=== PATIENT | female | born 1945 | race Caucasian/White ===

== ENCOUNTER → 2017-02-12 | Outpatient (CLI) | payer OTHER ==
[~2017-02-12] MED LIST: BP MEDICATION
--- NOTE | 2017-02-12 15:35 | MAMMOGRAPHY REPORT ---
BILATERAL DIGITAL SCREENING MAMMOGRAM WITH CAD: 02/12/2017 CLINICAL HISTORY: Routine screening. Patient has no complaints. TECHNIQUE: Current study was also evaluated with a Computer Aided Detection (CAD) system. Bilatera l CC and MLO views were obtained. COMPARISON: Comparison is made to exams dated: 02/12/2016 mammogram, 02/11/2015 mammogram, 02/09/2014 william mogram, 02/08/2013 mammogram, 02/08/2012 mammogram - [facility], and 09/08/2010 mammogr am - [facility]. BREAST COMPOSITION: The tissue of both breasts is heterogeneously dense, which may obscure small ma sses. FINDINGS: No suspicious masses, calcifications, or areas of architectural distortion are noted in e ither breast. There has been no significant interval change compared to prior exams. Bilateral johan gn-appearing calcifications are not significantly changed. Bilateral asymmetries are stable compare d to prior exams. IMPRESSION: ACR BI-RADS CATEGORY 2: BENIGN There is no mammographic evidence of malignancy. A 1 year screening mammogram is recommended. The p atient will receive written notification of the results. Approximately 10% of breast cancers are not detected with mammography. A negative mammographic repor t should not delay biopsy if a clinically suggestive mass is present. Leaenna Castellon M.D. ah/:02/12/2017 13:31:42 Method Consultant: Cookie MOSS(R)(M), [facility] letter sent: Normal 1/2 BI-RADS Code: ACR BI-RADS Category 2: Benign
== END | disposition home or self-care (01) ==
LOC: C.MAMM 08:54
PROVIDERS: ATTEND Family Medicine
DX: Z12.31 Encounter for screening mammogram for malignant neoplasm of breast (principal)

== ENCOUNTER → 2017-03-01 | Outpatient (CLI) | payer OTHER ==
[2017-03-01 10:52] LABS: BASO % 0.7 %; BASO ABS # 0.04 K/uL (0-0.2); COMPLETE YES; EOS % 1.5 %; HEMATOCRIT 47.8 % (37-47); IG% 0.2 %; LYMPH % 36.3 %; LYMPH ABS # 2.14 K/uL (1.2-3.4); MEAN CELL VOLUME 93.2 fL (80-100); MEAN CORPUSCULAR HEMOGLOBIN 29.6 pg (25-34); MEAN CORPUSCULAR HGB CONC 31.8 g/dl (32-36); MEAN PLATELET VOLUME 10.7 fL (7.4-10.4); MONO % 7.5 %; NEUT % 53.8 %; PLATELET COUNT 318 K/uL (130-400); RED BLOOD COUNT 5.13 M/uL (4.2-5.4); WHITE BLOOD COUNT 5.89 K/uL (4.8-10.8)
[2017-03-01 10:56] LABS: ESTIMATED AVERAGE GLUCOSE 126 mg/dl; HA1C FLAG Normal (Normal)
[2017-03-01 11:21] LABS: ALKALINE PHOSPHATASE 76 U/L (45-117); ALT/SGPT 46 U/L (12-78); AST/SGOT 28 U/L (15-37); BLOOD UREA NITROGEN 20 mg/dl (7-18); BUN/CREATININE RATIO 30.2 (10-20); CALCIUM 9.7 mg/dl (8.5-10.1); CARBON DIOXIDE 30 mmol/L (21-32); CHLORIDE 105 mmol/L (98-107); CHOLESTEROL 203 mg/dl (0-200); CHOLESTEROL/HDL RATIO 3.6; CREATININE 0.65 mg/dl (0.60-1.20); GLUCOSE 110 mg/dl (70-99); HDL CHOLESTEROL 56 mg/dl; LDL CHOLESTEROL CALCULATED 129 mg/dl; POTASSIUM 3.9 mmol/L (3.5-5.1); SODIUM 141 mmol/L (136-145); TRIGLYCERIDES 91 mg/dl (0-150); VERY LOW DENSITY LIPOPROT CALC 18 mg/dl
== END | disposition home or self-care (01) ==
LOC: C.LABBC 08:33
PROVIDERS: ATTEND Physician Assistant Medical
DX: Z00.00 Encounter for general adult medical examination without abnormal findings (principal); I10 Essential (primary) hypertension; R73.01 Impaired fasting glucose; E78.5 Hyperlipidemia, unspecified

== ENCOUNTER → 2017-03-22 | Outpatient (CLI) | payer OTHER ==
--- NOTE | 2017-03-22 09:41 | DIAGNOSTIC IMAGING REPORT ---
THYROID ULTRASONOGRAPHY CLINICAL HISTORY: GOITER DIFFUSE, NONTOXIC COMPARISON STUDY: June 2014 FINDINGS: The right lobe of the thyroid measures 61 x 21 x 24 mm. The left lobe of thyroid measures 18 x 18 x 24 mm. There are multiple coalescent thyroid nodules. The largest nodule on the right is a mid pole circumscribed isoechoic 24 mm nodule. The largest nodule on the left is a circumscribed mid pole heterogeneous slightly hypoechoic 32 mm nodule. There is a large circumscribed isoechoic isthmus nodule measuring 45 mm. IMPRESSION: Multinodular thyroid goiter, similar to the preceding examination. Electronically signed by: Jose Guardado M.D. 03/22/2017 9:39 AM Dictated Date/Time: 03/22/2017 9:37 AM
== END | disposition home or self-care (01) ==
LOC: C.ULTRBC 09:07
PROVIDERS: ATTEND Physician Assistant Medical
DX: E04.0 Nontoxic diffuse goiter (principal)

== ENCOUNTER → 2018-02-16 | Outpatient (CLI) | payer OTHER ==
--- NOTE | 2018-02-17 07:57 | MAMMOGRAPHY REPORT ---
BILATERAL DIGITAL SCREENING MAMMOGRAM TOMOSYNTHESIS WITH CAD: 02/16/2018 CLINICAL HISTORY: Routine screening. Patient has no complaints. TECHNIQUE: Breast tomosynthesis in addition to standard 2D mammography was performed. Current study was also evaluated with a Computer Aided Detection (CAD) system. COMPARISON: Comparison is made to exams dated: 02/12/2017 mammogram, 02/12/2016 mammogram, 02/11/2015 mamm ogram, 02/09/2014 mammogram, 02/08/2013 mammogram - [facility], and 09/08/2010 mammogram - [facility]. BREAST COMPOSITION: The tissue of both breasts is heterogeneously dense, which may obscure small mas ses. FINDINGS: No suspicious masses, calcifications, or areas of architectural distortion are noted in ei ther breast. There has been no significant interval change compared to prior exams. Bilateral benign -appearing calcifications are not significantly changed. IMPRESSION: ACR BI-RADS CATEGORY 2: BENIGN There is no mammographic evidence of malignancy. A 1 year screening mammogram is recommended. The pa tient will receive written notification of the results. Approximately 10% of breast cancers are not detected with mammography. A negative mammographic report should not delay biopsy if a clinically suggestive mass is present. Leeanna Castellon M.D. ah/:02/16/2018 12:35:27 Latin Professor: Sean Jauregui M, [facility] letter sent: Normal 1/2 BI-RADS Code: ACR BI-RADS Category 2: Benign
== END | disposition home or self-care (01) ==
LOC: C.MAMM 09:06
PROVIDERS: ATTEND Physician Assistant Medical
DX: Z12.31 Encounter for screening mammogram for malignant neoplasm of breast (principal)

== ENCOUNTER → 2018-03-07 | Outpatient (CLI) | payer OTHER ==
[2018-03-07 14:57] LABS: ALT/SGPT 32 U/L (12-78); AST/SGOT 24 U/L (15-37); BLOOD UREA NITROGEN 14 mg/dl (7-18); CARBON DIOXIDE 25 mmol/L (21-32); CREATININE 0.71 mg/dl (0.60-1.20); GLUCOSE 107 mg/dl (70-99); POTASSIUM 3.9 mmol/L (3.5-5.1); SODIUM 139 mmol/L (136-145)
[2018-03-07 15:07] LABS: ALKALINE PHOSPHATASE 71 U/L (45-117)
[2018-03-07 15:20] LABS: CHOLESTEROL 191 mg/dl (0-200); LDL CHOLESTEROL CALCULATED 106 mg/dl; TOTAL PROTEIN 7.9 gm/dl (6.4-8.2)
== END | disposition home or self-care (01) ==
LOC: C.LABBC 09:15
PROVIDERS: ATTEND Physician Assistant Medical
DX: I10 Essential (primary) hypertension (principal); R73.01 Impaired fasting glucose; E78.5 Hyperlipidemia, unspecified; E04.1 Nontoxic single thyroid nodule; M85.89 Other specified disorders of bone density and structure, multiple sites

== ENCOUNTER → 2018-03-11 | Outpatient (CLI) | payer OTHER ==
--- NOTE | 2018-03-11 10:00 | DIAGNOSTIC IMAGING REPORT ---
R HAND MIN 3 VIEWS ROUTINE CLINICAL HISTORY: HAND ARTHRITIS COMPARISON: None FINDINGS: Alignment of the right hand is anatomic. No fracture or suspicious lesion is present. No erosions are identified. There is marked joint space narrowing with osteophytosis of the distal interphalangeal joint of the right fifth finger. There is mild to moderate osteoarthritis within multiple additional articulations of the right hand. IMPRESSION: 1. No acute fracture. 2. Severe osteoarthritis within the distal interphalangeal joint of the right fifth finger. Moderate osteoarthritis within multiple additional articulations. Electronically signed by: Keith Hammond M.D. 03/11/2018 9:59 AM Dictated Date/Time: 03/11/2018 9:57 AM
--- NOTE | 2018-03-11 10:10 | DIAGNOSTIC IMAGING REPORT ---
L HAND MIN 3 VIEWS ROUTINE CLINICAL HISTORY: HAND ARTHRITIS COMPARISON: None FINDINGS: Alignment of the left hand is anatomic. No fracture or suspicious lesion. No erosions are identified. There is moderate arthritis of the left first carpometacarpal joint. There is mild to moderate osteoarthritis within several additional articulations with the left hand. IMPRESSION: 1. No acute fracture. 2. Moderate osteoarthritis of the left first carpometacarpal joint. 3. Mild osteoarthritis within multiple additional articulations of the left hand. Electronically signed by: Keith Hammond M.D. 03/11/2018 10:09 AM Dictated Date/Time: 03/11/2018 10:07 AM
== END | disposition home or self-care (01) ==
LOC: C.LABBC 09:32
PROVIDERS: ATTEND Physician Assistant Medical
DX: L40.9 Psoriasis, unspecified (principal); M19.041 Primary osteoarthritis, right hand; M18.12 Unilateral primary osteoarthritis of first carpometacarpal joint, left hand

== ENCOUNTER 2020-01-17 06:21 | Inpatient (IN) ==
--- NOTE | 2019-12-27 12:18 | PAT Medication Instructions ---
Medication Instructions Date of Service December 27, 2019 Home Medications Medication Instructions Recorded simvastatin 40 mg tablet 40 mg PO QPM #90 tab 10/30/19 azithromycin 250 mg tablet See Rx Instructions PO .COMPLEX #6 12/25/19 tab mometasone 50 mcg/actuation nasal 2 sprays INTNAS UD PRN #17 gm 12/25/19 spray acetaminophen 325 mg capsule 325 mg PO Q6H PRN ascorbate calcium (vitamin C) 500 mg tablet 500 mg PO DAILY calcipotriene 0.005 % topical cream 1 appln TOP BID PRN clobetasol 0.05 % topical cream 1 appln TOP UD PRN multivitamin 1 cap PO DAILY secukinumab 150 mg/mL subcutaneous syringe 150 mg SQ MONTHLY simvastatin 40 mg tablet 40 mg PO QPM calcium carbonate-vitamin D3 [Calcium 600 + D(3)] 1 cap PO DAILY cetirizine [Zyrtec] 10 mg PO DAILY lisinopril 10 mg PO QAM triamterene-hydrochlorothiazid 1 cap PO QAM azithromycin 250 mg tablet See Rx Instructions PO .COMPLEX mometasone 50 mcg/actuation nasal spray 2 sprays INTNAS UD PRN Continue as directed secukinumab 150 mg/mL subcutaneous syringe 150 mg SQ MONTHLY azithromycin 250 mg tablet See Rx Instructions PO .COMPLEX STOP taking 24 hours before surgery calcipotriene 0.005 % topical cream 1 appln TOP BID PRN clobetasol 0.05 % topical cream 1 appln TOP UD PRN DO NOT take the morning of surgery ascorbate calcium (vitamin C) 500 mg tablet 500 mg PO DAILY multivitamin 1 cap PO DAILY calcium carbonate-vitamin D3 [Calcium 600 + D(3)] 1 cap PO DAILY cetirizine [Zyrtec] 10 mg PO DAILY lisinopril 10 mg PO QAM triamterene-hydrochlorothiazid 1 cap PO QAM Take morning of surgery With a small sip of water, OTHERWISE NOTHING TO EAT OR DRINK AFTER MIDNIGHT: acetaminophen 325 mg capsule 325 mg PO Q6H PRN (okay to take up to 4 hours prior to surgery if needed) mometasone 50 mcg/actuation nasal spray 2 sprays INTNAS UD PRN (if needed) Take evening before surgery acetaminophen 325 mg capsule 325 mg PO Q6H PRN (if needed) simvastatin 40 mg tablet 40 mg PO QPM mometasone 50 mcg/actuation nasal spray 2 sprays INTNAS UD PRN (if needed) Other Notes If you have any questions please call us at [phone] or [phone] or [phone] or [phone]
--- NOTE | 2019-12-28 14:11 | Anesthesiology Consultation ---
Date of Service December 28, 2019 Assessment & Plan (1) Encounter for pre-operative examination: Chart Review Chart Review: Acceptable Risk for Surgery (pending final PCP clearance after review of recent pre op testing ) and Patient seen in Pre Admission Testing Surgeon ordered PCP clearance 12/25/19 (will send preop labs to PCP for review) Seen by PCP 12/24/19= Pending normal preop testing, she is at low risk for cardiac complications for upcoming knee replacement surgery. Pre op testing scheduled later this week. Checked CXR - given azithromycin due to upcoming surgery for cough. Also recommended OTC Prilosec for possible reflux for cough Teaching & Discussion Pre-Anesthesia Teaching/Discussion Notes: Instructed NPO after midnight before surgery,except medications with 15 cc of water. Medication instructions provided according to the PAT guidelines. History Surgery Operation Date: 01/17/20 09:00 Proposed Procedures p Right Total Knee Arthroplasty - Dani Linton MD Height/Weight Height: 5 ft 2 in Weight: 92.1 kg Allergies Allergy/AdvReac Type Severity Reaction Status Date / Time celecoxib [From Celebrex] Allergy Unknown Psoriasis Verified 12/25/19 08:52 meloxicam Allergy Unknown Psoriasis Verified 12/25/19 08:52 Medications Home Medications Medication Instructions Recorded Confirmed Last Taken acetaminophen 325 mg capsule 325 mg PO Q6H PRN 05/31/19 12/25/19 Unknown ascorbate calcium (vitamin C) 500 500 mg PO DAILY 05/31/19 12/25/19 Unknown mg tablet calcipotriene 0.005 % topical cream 1 appln TOP BID PRN 05/31/19 12/25/19 Unknown clobetasol 0.05 % topical cream 1 appln TOP UD PRN 05/31/19 12/25/19 Unknown multivitamin 1 cap PO DAILY 05/31/19 12/25/19 Unknown secukinumab 150 mg/mL subcutaneous 150 mg SQ MONTHLY ml 05/31/19 12/25/19 12/15/19 syringe simvastatin 40 mg tablet 40 mg PO QPM #90 tab 10/30/19 12/25/19 Unknown calcium carbonate-vitamin D3 1 cap PO DAILY 12/21/19 12/25/19 Unknown [Calcium 600 + D(3)] cetirizine [Zyrtec] 10 mg PO DAILY 12/21/19 12/25/19 Unknown lisinopril 10 mg PO QAM 12/21/19 12/25/19 Unknown triamterene-hydrochlorothiazid 1 cap PO QAM 12/21/19 12/25/19 Unknown azithromycin 250 mg tablet See Rx Instructions PO .COMPLEX #6 12/25/19 12/25/19 Unknown tab mometasone 50 mcg/actuation nasal 2 sprays INTNAS UD PRN #17 gm 12/25/19 12/25/19 Unknown spray Past Medical History Medical History Hyperlipidemia Hypertension Impaired fasting glucose Hgb A1C usually around 6.0 Psoriasis Follows with rheum Thyroid nodule Under observation- follows with PCP - stable x years Exercise / Class Metabolic Activity II 4-5 Yardwork/Stairs/Walk up hill (one flight of stairs- no chest pain or SOB ) Past Family History Family History Mother Pulmonary embolism History of hip surgery Hypertension Hyperlipidemia Father Pneumothorax Hypertension Hyperlipidemia Grandmother Breast cancer Past Surgical History Surgical History Family history of reaction to anesthesia SISTER - N/V History of colonoscopy History of gynecologic surgery MULTIPLE FOR ENDOMETRIOSIS History of hemangioma FOR REMOVAL X3 (NO LOWER EAR LOBE R SIDE) History of left knee surgery History of left oophorectomy History of repair of left rotator cuff Past Anesthesia History No Hx of Anesthesia Complications and No Family Hx of Anesthesia Complications (besides sister having PONV ) History of PONV No Hx of PONV and No Hx of Motion Sickness Social History Smoking Status: Never smoker Do You Dip or Chew Tobacco: No Hx Alcohol Use: No Hx Substance Use: No substance use type: does not use Review of Systems Mild cough secondary to post nasal drip- chronic issue - CXR unremarkable. PCP aware Mild rare reflux - started Omeprazole 12/25/19 Patient denies chest pain, shortness of breath, dyspnea on exertion, wheezing, palpitations. No hx of seizures, stroke, TN, apnea/snoring. No hx of blood clots or blood transfusions No recent steroid use Physical Exam Vital Signs VITALS BP 139/81 P 110 TEMP 98.0 SP02 96% RESP 16 Constitutional no acute distress ENMT Mouth: no TMJ clicking, no chipped teeth and no loose teeth Thyromental Distance: < 3.5 Finger Breadths (3.0) Mallampati Class: I Caps to molars Neck + short neck and + limited neck extension (minimal ) Mild goiter noted to neck Respiratory normal respiratory effort; no respiratory distress Auscultation: lungs clear to auscultation bilaterally; no diminished lung sounds and no wheezes Cardiovascular Rate/Rhythm: regular rate and regular rhythm Heart Sounds: no murmur Vessels: no carotid bruit Extremities: no edema Musculoskeletal Spine: no pain with cervical ROM Neurologic moves all extremities Psychiatric Orientation: alert Testing Laboratory Results 12/28/19 14:25 12/28/19 14:25 PT 10.2 Seconds (9.0-12.0) 12/28/19 14:25 INR 1.0 (0.9-1.1) 12/28/19 14:25 APTT 23.4 Seconds (21.0-31.0) 12/28/19 14:25 Urine Color Yellow 12/28/19 14:25 Urine Appearance Clear (Clear) 12/28/19 14:25 Urine pH 6.0 (4.5-7.5) 12/28/19 14:25 Ur Specific [place] 1.018 (1.000-1.030) 12/28/19 14:25 Urine Protein Negative (Negative) 12/28/19 14:25 Urine Glucose (UA) Negative (Negative) 12/28/19 14:25 Urine Ketones Negative (Negative) 12/28/19 14:25 Urine Nitrite Negative (Negative) 12/28/19 14:25 Ur Leukocyte Esterase Negative (Negative) 12/28/19 14:25 Blood Type A Positive 12/28/19 14:25 Antibody Screen NEGATIVE 12/28/19 14:25 Electrocardiogram Date: 12/28/19 Findings: + NSR @ (100) Possible anterior infarct (compared to 04/30/04)- no significant change found (patient has good functional status with no change in EKG since 2003; will also send to PCP for review for clearance) Chest X-Ray Date: 12/25/19 Findings: + NAD There areas of linear atelectasis/scarring within the right midlung zone and left lung base
[2019-12-28 15:07] LABS: Basophils # (auto) 0.04 K/uL (0-0.2); Basophils % (auto) 0.4 %; Eosinophils # (auto) 0.06 K/uL (0-0.5); Eosinophils % (auto) 0.6 %; Hematocrit (blood only) 46.9 % (37-47); Hemoglobin 15.3 g/dL (12.0-16.0); Immature Granulocytes # (auto) 0.01 K/uL (0.00-0.02); Immature Granulocytes % (auto) 0.1 %; Lymphocytes # (auto) 2.67 K/uL (1.2-3.4); Mean Corpuscular Hemoglobin 30.2 pg (25-34); Mean Corpuscular Hgb Conc 32.6 g/dL (32-36); Mean Corpuscular Volume 92.7 fL (80-100); Mean Platelet Volume 10.6 fL (7.4-10.4); Monocytes # (auto) 0.68 K/uL (0.11-0.59); Monocytes % (auto) 7.1 %; Neutrophils # (auto) 6.08 K/uL (1.4-6.5); Neutrophils % (auto) 63.8 %; Platelet Count 337 K/uL (130-400); RDW Coefficient of Variation 13.8 % (11.5-14.5); RDW Standard Deviation 46.3 fL (36.4-46.3); Red Blood Count 5.06 M/uL (4.2-5.4); White Blood Count 9.54 K/uL (4.8-10.8)
[2019-12-28 15:13] LABS: BUN Creatinine Ratio 30.4 (10-20); Calcium 10.7 mg/dl (8.5-10.1); Creatinine Clr Calc Pharmacy 82.6 ml/min; Est GFR (African American) 102.8; Est GFR (Non-African American) 88.7; Potassium 4.3 mmol/L (3.5-5.1)
[2019-12-28 15:18] LABS: Partial Thromboplastin Ratio 0.9; Partial Thromboplastin Time 23.4 Seconds (21.0-31.0); Prothrombin Time 10.2 Seconds (9.0-12.0)
[2019-12-28 15:27] LABS: Appearance Urine Clear (Clear); Bilirubin Urine Negative (Negative); Blood Urine Negative (Negative); Color Urine Yellow; Glucose Urine UA Negative (Negative); Ketones Urine Negative (Negative); Leukocyte Esterase Urine Negative (Negative); Nitrite Urine Negative (Negative); Protein Urine Negative (Negative); Specific Gravity Urine 1.018 (1.000-1.030); Urobilinogen Urine Negative (Negative)
--- NOTE | 2019-12-29 06:08 | Electrocardiogram Report ---
Test Reason : Blood Pressure : / mmHG Vent. Rate : 100 BPM Atrial Rate : 100 BPM P-R Int : 164 ms QRS Dur : 088 ms QT Int : 348 ms P-R-T Axes : 064 -21 007 degrees QTc Int : 448 ms Normal sinus rhythm Cannot rule out Anterior infarct , age undetermined Abnormal ECG When compared with ECG of 30-APR-2004 10:10, No significant change was found Confirmed by Manish Sahu ([id number]) on 12/29/2019 6:08:01 AM Referred By: Dani Linton Confirmed By:Manish Sahu
--- NOTE | 2020-01-02 19:15 | History and Physical Report ---
DATE OF ADMISSION: 01/17/2020 CHIEF COMPLAINT: Right knee pain. HISTORY OF PRESENT ILLNESS: This 74-year-old white female presents to the office with complaints of longstanding history of right knee pain. Pain is worse with weightbearing. It has been present for several years, but has become worse over the last 6 months. It is affecting her ADLs. She denies any numbness or tingling. Denies any swelling. She feels she is becoming more bowlegged. She still tries to remain active by snowmobiling and walking. She has been unable to walk very far secondary to knee pain. Recent x-ray images have been obtained. She elects to proceed with right total knee arthroplasty in hopes of alleviating her discomfort. PAST MEDICAL HISTORY: Significant for elevated cholesterol, hypertension, obesity, osteoarthritis, history of seasonal allergies, psoriasis, and squamous cell skin cancer. ALLERGIES: KNOWN ALLERGY TO MELOXICAM AND CELEBREX. SOCIAL HISTORY: The patient is . Retired. No tobacco use. No ETOH use. CURRENT MEDICATIONS: Lisinopril 10 mg p.o. daily, calcium with vitamin D daily, multivitamin daily, loratadine 10 mg daily, Tylenol 325 mg q. 4 hours p.r.n., HCTZ/triamterene 25 mg/37.5 mg p.o. daily, simvastatin 40 mg p.o. at bedtime, Cosentyx 300 mg subQ every 4 weeks, clobetasol 0.05% topical cream p.r.n., Dovonex 0.005% topical cream b.i.d. PREVIOUS SURGERIES: Rotator cuff repair 2003, multiple shave and punch biopsies, excision of squamous cell carcinoma 02/2017. FAMILY HISTORY: Noncontributory. Parents are . REVIEW OF SYSTEMS: A total of 10 systems are reviewed and are significant only for above stated conditions. PHYSICAL EXAMINATION: VITAL SIGNS: Weight 92.1 kg, height 154.5 cm, BMI 38.6, temperature 37.0 oral, BP 124/82, pulse 120. O2 sat 96% on room air. GENERAL: Well-developed, well-nourished, obese, elderly white female in no acute distress. Sitting in a chair. Alert and oriented. SKIN: Warm and dry with good turgor. Small psoriatic rash present on her right lower leg. It is not in proximity to the knee or her potential incision line. Erythemic base. No intraarticular effusion. HEENT: Normocephalic, atraumatic. Eyes PERRLA, EOMI. Nares patent bilaterally without turbinate enlargement. Oropharynx without erythema or exudate. No lesions noted. Uvula midline. Oral mucosa moist. Fair dentition. Fillings are noted. HEART: RRR. No MGR. LUNGS: Clear to auscultation bilaterally. No crackles, rhonchi or wheezing. Good air movement. ABDOMEN: Obese. Bowel sounds present x4, soft, nontender. No organomegaly. No masses. MUSCULOSKELETAL: Right knee evaluation reveals no intraarticular effusion. Full terminal extension. Flexion to greater than 90 degrees. Varus stance. Stable collateral ligaments. No discomfort with palpation over the ankle. She does have medial and lateral joint line discomfort with palpation with medial being worst. No defect in the patellar tendon or quadriceps tendon. Stable collateral ligaments. Ambulates with an antalgic gait. NEUROLOGIC: Gross sensation is intact across the lower extremities via soft touch. Cranial nerves II-XII are intact. DATA: Radiographic imaging previously obtained shows significant medial joint space and tricompartmental degenerative changes. She has subluxation of the tibia. Periarticular osteophytes and subchondral sclerosis are also evident. IMPRESSION: Right knee end-stage degenerative joint disease. PLAN: Postoperative prescriptions for Percocet and Coumadin will be provided at discharge from the hospital. Anticipate discharge to home with home health services. She will be returning from [place] with her just prior to surgery. Preoperative lab work, EKG, and chest x-ray have been ordered. She will obtain medical clearance from her primary care provider Johanna Lynn. Prescription was provided for a rolling walker. She will also obtain a cane.
[~2020-01-17 06:21] MED LIST changes: -BP MEDICATION; +CEFAZOLIN 2000MG 2,000 MG/15 ML SYR IV SCH; +LR 500ML BOLUS, THEN 15ML/HR IV SCH; +LR 60ML/HR IV SCH; +ROPIVACAINE 0.5% HCL/PF 150 MG, BUPIVACAINE 0.5% MPF 30 ML, EPINEPHrine 0.15 MG, Ketoro... INFIL SCH; +TRANEXAMIC ACID 1,000 MG **IV Pre-op IV SCH
--- NOTE | 2020-01-17 06:26 | History & Physical Bridge Note ---
Date of Service January 17, 2020 History & Physical Bridge Note I have examined the patient, reviewed the History & Physical and in the interval since the performance of the History & Physical I have noted the following changes of clinical significance:consent verified/obtained/site confirmed. no changes noted
[2020-01-17] MEDS ORDERED: BUPIVACAINE 0.5 % 5 MG/1 ML PF 10ML VIAL ONE (06:35)
[2020-01-17] MEDS ORDERED: BUPIVACAINE 0.25% 30 ML VIAL ONE (06:36)
[2020-01-17] MEDS ORDERED: fentaNYL citrate 100 MCG/2 ML VIAL ONE (07:21)
[2020-01-17] MEDS ORDERED: MIDAZOLAM HCL 1 MG/ML 2ML VIAL ONE (07:21)
[2020-01-17] MEDS ORDERED: fentaNYL citrate 100 MCG/2 ML VIAL IV PRN (08:07)
[2020-01-17] MEDS ORDERED: ONDANSETRON INJ 2 MG/ML 2 ML VIAL IV PRN ×2 (08:07→11:52)
[2020-01-17] MEDS ORDERED: ATROPINE SULFATE 0.1 MG/ML 10ML SYR IV PRN (08:07)
[2020-01-17] MEDS ORDERED: ePHEDrine sulfate 50 MG/ML AMP IV PRN (08:07)
[2020-01-17] MEDS ORDERED: ORTHO JOINT ANESTHETIC ONE (09:05)
--- NOTE | 2020-01-17 10:41 | Post Operative Brief Note ---
Immediate Post Op Note v1 Date of Surgery January 17, 2020 Pre & Post Diagnosis Operation Date: 01/17/20 09:00 Pre-Op Diagnosis: Right Knee End-Stage Degenerative Joint Disease Post-Op Diagnosis: Right Knee End-Stage Degenerative Joint Disease I identified the patient and participated in the time-out.: Yes Procedure Operation Date: 01/17/20 09:00 Actual Procedures p Right Total Knee Arthroplasty(Right) - Dani Linton MD Surgeon Dani Linton MD Elementary Vocal Music Teacher praneeth/migel Estimated Blood Loss 25 Findings Consistent with Post-Op Diagnosis
--- NOTE | 2020-01-17 10:51 | Operative Report ---
Post Operative Report Pre & Post Diagnosis Operation Date: 01/17/20 09:00 Pre-Op Diagnosis: Right Knee End-Stage Degenerative Joint Disease Post-Op Diagnosis: Right Knee End-Stage Degenerative Joint Disease I identified the patient and participated in the time-out.: Yes Procedure Operation Date: 01/17/20 09:00 Actual Procedures p Right Total Knee Arthroplasty(Right) - Dani Linton MD Surgeon Dani Linton M.D. Yarn Washer praneeth/migel MACIEL Estimated Blood Loss 25 Findings Consistent with Post-Op Diagnosis Specimens bone and soft tissue Drains none Anesthesia Type MAC Spinal Regional Complications none Disposition Accompanied Patient To Recovery: Yes Disposition: Recovery Room Description of Procedure Patient was taken to the operating room and placed under IV sedation with spinal anesthesia and peripheral nerve block. He was given 2 g of IV Ancef for surgical prophylaxis. Time out was performed. He was prepped and draped in routine sterile fashion. I was present during the entire case from the time of patient entering the room until exit. I assisted with positioning, draping, tissue retraction, trialing of implants, putting in permanent implants, hemostasis, closure and dressings. Please see Dr. Linton's operative report for further details regarding the procedure. Patient was awakened and transferred to recovery room in stable condition. I attest to the content of the Intraoperative Record and any orders documented therein. Any exceptions are noted below.
--- NOTE | 2020-01-17 11:03 | Operative Report ---
Post Operative Report Pre & Post Diagnosis Operation Date: 01/17/20 09:00 Pre-Op Diagnosis: Right Knee End-Stage Degenerative Joint Disease Post-Op Diagnosis: Right Knee End-Stage Degenerative Joint Disease I identified the patient and participated in the time-out.: Yes Procedure Operation Date: 01/17/20 09:00 Actual Procedures p Right Total Knee Arthroplasty(Right) - Dani Linton MD Surgeon Bijan Riley MD Journeyman Pressman praneeth/migel MACIEL Estimated Blood Loss 25 Findings Consistent with Post-Op Diagnosis Specimens Bone from Right knee Complications none Disposition Accompanied Patient To Recovery: Yes Disposition: Recovery Room Description of Procedure Supine, standard prep and drape, time out, tourniquet Total Knee Arthroplasty Right Please see Dr Linton's procedure notes for specific details I was present throughout the case, assisted for wound closure and transferred the patient to PACU in stable condition I attest to the content of the Intraoperative Record and any orders documented therein. Any exceptions are noted below.
--- NOTE | 2020-01-17 11:24 | Anesthesiology Progress Note ---
Date of Service January 17, 2020 Anesthesia Post Procedure Vital Signs Vital Signs: Temp Pulse Pulse Resp BP Pulse Ox 01/17/20 11:10 76 19 101/72 100 01/17/20 11:00 79 19 105/65 100 01/17/20 10:51 36.3 C L 82 16 104/60 99 01/17/20 06:54 36.7 C 102 H 20 148/99 H Transfer of Care Handoff Completed per policy Notes Mental Status: alert / awake / arousable and participated in evaluation Nausea / Vomiting: adequately controlled Pain: adequately controlled Airway Patency, RR, SpO2: stable & adequate BP & HR: stable & adequate Hydration State: stable & adequate Neuraxial Anesthesia: was administered and sensory block is resolving Anesthetic Complications: no major complications apparent and Pt Satisfied with anesthetic care
--- NOTE | 2020-01-17 11:27 | XRay Report ---
XR knee RT 1 or 2V routine CLINICAL HISTORY: post op R TKA COMPARISON: 11/20/2019 DISCUSSION: There are postsurgical changes of a total right knee arthroplasty and patellar resurfacin g. The femoral tibial components appear well seated. There are overlying skin josee. There is gas p resent within the soft tissues consistent with history of recent surgery. IMPRESSION: Postsurgical changes of a total right knee arthroplasty. ACT 112: Negative or not required by law. Electronically signed by: Jose Guardado M.D. 01/17/2020 11:25 AM
--- NOTE | 2020-01-17 11:46 | Operative Report (OR) ---
DATE OF OPERATION: 01/17/2020 SURGEON: Dani Linton MD. CENTRIFUGAL EXTRACTOR OPERATOR: Dr. Riley. SECOND CENTRIFUGAL EXTRACTOR OPERATOR: Janae. PREOPERATIVE DIAGNOSIS: Osteoarthritis, right knee. POSTOPERATIVE DIAGNOSIS: Osteoarthritis, right knee. OPERATION PERFORMED: Cemented right total knee replacement. SUMMARY OF IMPLANTS: Size 3 right femur posterior cruciate substituting, size 2.5 mobile-bearing tray, insert 3 x 12 posterior cruciate substituting matching the femur, size 38 patella, 2 bags of Palacos G cement. PATHOLOGY: Bone pathology pending. ESTIMATED BLOOD LOSS: 25 mL. CRYSTALLOID: Per anesthesia. PROPHYLAXIS: DVT prophylaxis per protocol. PERIOPERATIVE SITUATION: Medically cleared female with intractable knee pain with chronic ACL insufficiency, has varus deformity with subluxation of her tibia, at this point has end-stage tricompartmental disease. DESCRIPTION OF PROCEDURE: The patient was appropriately identified, site verified, consent verified. Antibiotics confirmed as being given. The right lower extremity was prepped and draped in usual routine fashion. Midline exposure was utilized. Parapatellar arthrotomy was performed. Synovectomy completed, osteophytes resected. Distal femur then resected 12 mm, proximal tibia resected 4 mm, extension gap was excellent. Femur sized exactly at a 3, was measured 3, cut 3. No notching occurred. Extension gap and flexion gap were excellent. This tibia was sized to a 2.5, appropriate broaching and reaming carried out. Once the box cut was made, trial implants were placed and everything looked to fit well. The patella tracked well. The patella was then resected leaving 14 mm. A 38 button fit well. The trial tracked well. Everything was then injected with the Orthomix. Per anesthesia, in and around the Orthomix, went into a little bit of AFib, then came out of it. It was likely from the epinephrine. She is stable. All trial implants were then removed. Permanents were then cemented into position, tibia, femur and patella in that order and then after 12 minutes, the tourniquet was deflated, minor bleeding occurred and then the cement was checked, there was no need for removal. The permanent liner seated, the knee reduced and then closed at 30 degrees of flexion with #2 Vicryl, 2-0 Vicryl and stainless steel clips. Appropriate dressing applied. The patient was transferred to recovery room in satisfactory condition having tolerated the procedure well. I attest to the content of the Intraoperative Record and any orders documented therein. Any exception s are noted below.
[2020-01-17] MEDS ORDERED: MAGNESIUM HYDROXIDE SUSP 30 ML UDC PO PRN (11:52)
[2020-01-17] MEDS ORDERED: bisacodyL 10 MG SUPP PR PRN (11:52)
[2020-01-17] MEDS ORDERED: NALOXONE HCL 0.4 MG/1 ML VIAL/CARP IV PRN (11:52)
[2020-01-17] MEDS ORDERED: METOCLOPRAMIDE HCL INJ 5 MG/ML 2 ML VIAL IV PRN (11:52)
[2020-01-17] MEDS ORDERED: SODIUM CHLORIDE 0.9% 1000ML 1,000 ML IV SCH (11:52)
[2020-01-17] MEDS ORDERED: HYDROmorphone INJ 0.5 MG/0.5 ML SYR IV PRN (11:52)
[2020-01-17] MEDS ORDERED: FLUTICASONE PROPIONATE NA SPR 16 GM BTL PRN (12:45)
[2020-01-17] MEDS: ACETAMINOPHEN 500 MG TAB PO SCH ×2 (13:55→21:11)
[2020-01-17] MEDS: KETOROLAC TROMETHAMINE 15 MG/ML VIAL IV SCH ×2 (13:58→19:02)
[2020-01-17] MEDS: ORTHO WARFARIN NOMOGRAM SCH (14:01)
--- NOTE | 2020-01-17 15:09 | Progress Notes ---
DATE: 01/17/2020 SUBJECTIVE: Postop check, status post right total knee replacement. The patient is doing well, sitting up and has no issues, ate breakfast and lunch. Denies any chest pain, shortness of breath, fever, chills, nausea, vomiting or headache. OBJECTIVE: Vital signs are stable. She is afebrile. Neurovascular check, femoral sciatic nerve is normal. Postop x-rays look excellent. ASSESSMENT: Doing well. PLAN: Is to discharge home tomorrow, if she does well overnight. Can do weightbearing as tolerated. A knee immobilizer for several days until quad tone returns. At this point in time, things look quite good. We will Hep-Lock her IV.
[2020-01-17] MEDS: OXYCODONE HCL IR 5 MG TAB (IMMEDIATE RELEASE) PO PRN (15:33)
--- NOTE | 2020-01-17 15:39 | Discharge Summary (DS) ---
CHIEF COMPLAINT: Right knee pain. HISTORY OF PRESENT ILLNESS: Admitted for elective right total knee replacement, has done well. She is sitting up, eating, drinking, has no issues. Postop x-rays look excellent. PAST MEDICAL HISTORY: Remarkable for hypercholesterolemia, hypertension, obesity, osteoarthritis, seasonal allergies, psoriasis, squamous cell skin cancer. ALLERGIES: TO MELOXICAM AND CELEBREX. SOCIAL HISTORY: Reveals she is , retired. No tobacco or alcohol use. PREADMISSION MEDICATIONS: Include calcium and vitamin D, multivitamin, loratadine, Tylenol, hydrochlorothiazide/triamterene, simvastatin, Cosentyx, clobetasol, Dovonex. She will add Coumadin to keep INR 1.8-2.2 and p.r.n. Percocet. PREVIOUS SURGERIES: Include rotator cuff repair, skin surgeries. FAMILY HISTORY: Noncontributory. Parents are . REVIEW OF SYSTEMS: Noncontributory. ASSESSMENT: Did well status post right total knee replacement. At this point in time, we will discharge tomorrow if she does well overnight. Discharge on Coumadin pending INR tomorrow. Follow up in 2 weeks for staple removal. NUUN
[2020-01-17] MEDS ORDERED: WARFARIN SOD 5 MG TAB PO ONE (16:00)
[2020-01-17] MEDS: [UNRECOGNIZED DRUG - OTHER] SCH (16:40)
[2020-01-17] MEDS ORDERED: TRANEXAMIC ACID / 0.7% NACL 1,000 MG/100 ML BAG IV SCH (16:55)
[2020-01-17] MEDS: CEFAZOLIN 2000MG 2,000 MG/15 ML SYR IV SCH (17:00)
[2020-01-17] MEDS: DOCUSATE SODIUM 100 MG CAP PO SCH (20:55)
[2020-01-17] MEDS ORDERED: SENNA 8.6 MG TAB PO SCH (21:00)
[2020-01-17] MEDS ORDERED: SIMVASTATIN 40 MG TAB PO SCH (21:00)
[2020-01-18] MEDS: KETOROLAC TROMETHAMINE 15 MG/ML VIAL IV SCH ×2 (01:06→06:47)
[2020-01-18] MEDS: [UNRECOGNIZED DRUG - OTHER] SCH ×2 (01:06→08:40)
[2020-01-18] MEDS: CEFAZOLIN 2000MG 2,000 MG/15 ML SYR IV SCH (01:06)
[2020-01-18 05:38] LABS: Hematocrit (blood only) 38.4 % (37-47); Hemoglobin 12.1 g/dL (12.0-16.0); Mean Corpuscular Hemoglobin 29.4 pg (25-34); Mean Corpuscular Hgb Conc 31.5 g/dL (32-36); Mean Corpuscular Volume 93.2 fL (80-100); Mean Platelet Volume 10.6 fL (7.4-10.4); Platelet Count 282 K/uL (130-400); RDW Coefficient of Variation 13.5 % (11.5-14.5); RDW Standard Deviation 46.5 fL (36.4-46.3); Red Blood Count 4.12 M/uL (4.2-5.4)
[2020-01-18 05:49] LABS: INR 1.1 (0.9-1.1); Prothrombin Time 11.1 Seconds (9.0-12.0)
[2020-01-18 05:56] LABS: BUN Creatinine Ratio 24.8 (10-20); Calcium 9.4 mg/dl (8.5-10.1); Creatinine Clr Calc Pharmacy 79.3 ml/min; Est GFR (African American) 101.3; Est GFR (Non-African American) 87.4; Potassium 4.4 mmol/L (3.5-5.1)
[2020-01-18] MEDS: ACETAMINOPHEN 500 MG TAB PO SCH (06:47)
[2020-01-18] MEDS ORDERED: dexAMETHasone 10 MG in SYRINGE 0 ML IV SCH (08:00)
--- NOTE | 2020-01-18 08:02 | Progress Notes ---
DATE: 01/18/2020 SUBJECTIVE: Postop day #1 status post right total knee replacement. The patient is doing quite well, has no major issues. She denies any chest pain, shortness of breath, fever, chills, nausea, vomiting, or headache. OBJECTIVE: VITAL SIGNS: Stable. She is afebrile. LABORATORY DATA: Hematocrit stable at 38.4. INR is 1.1. ASSESSMENT AND PLAN: Doing well status post right total knee replacement. Discharged home today after dressing change. Discharged on 4 mg of Coumadin. Check INR on Wednesday.
--- NOTE | 2020-01-18 08:13 | Anesthesiology Progress Note ---
Date of Service January 18, 2020 Anesthesia Post Procedure Vital Signs Vital Signs: Temp Pulse Pulse Resp BP Pulse Ox 01/18/20 07:12 36.9 C 87 18 151/85 H 95 01/18/20 02:35 36.9 C 84 16 135/86 93 01/17/20 23:37 37.6 C H 85 16 139/81 95 01/17/20 19:32 36.8 C 84 16 139/80 93 01/17/20 15:32 37 C 84 16 149/91 H 94 01/17/20 14:45 36.4 C L 79 16 147/91 H 98 01/17/20 13:49 36.6 C 87 18 138/90 97 01/17/20 12:56 36.5 C 74 16 127/85 98 01/17/20 12:26 74 16 127/83 99 01/17/20 11:45 36.5 C 77 15 122/78 98 01/17/20 11:30 36.9 C 74 20 116/78 99 01/17/20 11:20 36.9 C 75 20 114/71 99 01/17/20 11:10 76 19 101/72 100 01/17/20 11:00 79 19 105/65 100 01/17/20 10:51 36.3 C L 82 16 104/60 99 Pain Intensity Right Knee: Pain Intensity: 7 Notes Mental Status: alert / awake / arousable and participated in evaluation Patient Amnestic to Procedure: Yes Nausea / Vomiting: adequately controlled Pain: adequately controlled Airway Patency, RR, SpO2: stable & adequate BP & HR: stable & adequate Hydration State: stable & adequate Neuraxial Anesthesia: was administered and sensory block resolved Anesthetic Complications: no major complications apparent and Pt Satisfied with anesthetic care
[2020-01-18] MEDS ORDERED: WARFARIN SOD 5 MG TAB PO ONE (08:30)
[2020-01-18] MEDS: DOCUSATE SODIUM 100 MG CAP PO SCH (08:41)
[2020-01-18] MEDS: ORTHO WARFARIN NOMOGRAM SCH (08:45)
[2020-01-18] MEDS: OXYCODONE HCL IR 5 MG TAB (IMMEDIATE RELEASE) PO PRN (08:47)
[2020-01-18] MEDS ORDERED: ASCORBIC ACID 500 MG TAB PO SCH (09:00)
[2020-01-18] MEDS ORDERED: TRIAMTERENE/HCTZ 37.5/25MG CAP PO SCH (09:00)
[2020-01-18] MEDS ORDERED: MULTIVITAMIN TAB PO SCH (09:00)
[2020-01-18] MEDS ORDERED: CALCIUM 600MG + VIT D 400 IU TAB PO SCH (09:00)
[2020-01-18] MEDS ORDERED: lisinopriL 10 MG TAB PO SCH (09:00)
[2020-01-18] MEDS ORDERED: CETIRIZINE HCL 10 MG TABLET PO SCH (09:00)
== END 2020-01-18 11:42 | disposition home health service (06) | DRG 470 ==
LOC: ASU 06:21 → 3E 10:56

== ENCOUNTER 2021-01-22 06:29 | Observation (INO) ==
--- NOTE | 2020-12-27 11:31 | PAT Medication Instructions ---
Medication Instructions Date of Service December 27, 2020 Home Medications Medication Instructions Recorded mometasone 50 mcg/actuation nasal 2 sprays INTNAS UD PRN #17 gm 12/25/19 spray lisinopril 10 mg tablet 10 mg PO QAM #90 tab 07/02/20 simvastatin 40 mg tablet 40 mg PO QPM #90 tab 09/23/20 triamterene 37.5 1 cap PO QAM #90 cap 09/23/20 mg-hydrochlorothiazide 25 mg capsule calcipotriene 0.005 % topical cream 1 appln TOP BID PRN clobetasol 0.05 % topical cream 1 appln TOP UD PRN multivitamin 1 cap PO DAILY secukinumab 150 mg/mL subcutaneous syringe 150 mg SQ MONTHLY mometasone 50 mcg/actuation nasal spray 2 sprays INTNAS UD PRN cholecalciferol (vitamin D3) 25 mcg (1,000 unit) capsule 1,000 units PO DAILY lisinopril 10 mg tablet 10 mg PO QAM cetirizine 10 mg capsule 10 mg PO DAILY PRN simvastatin 40 mg tablet 40 mg PO QPM triamterene 37.5 mg-hydrochlorothiazide 25 mg capsule 1 cap PO QAM ASK your prescriber and surgeon secukinumab 150 mg/mL subcutaneous syringe 150 mg SQ MONTHLY STOP taking 24 hours before surgery calcipotriene 0.005 % topical cream 1 appln TOP BID PRN clobetasol 0.05 % topical cream 1 appln TOP UD PRN DO NOT take the morning of surgery multivitamin 1 cap PO DAILY cholecalciferol (vitamin D3) 25 mcg (1,000 unit) capsule 1,000 units PO DAILY lisinopril 10 mg tablet 10 mg PO QAM cetirizine 10 mg capsule 10 mg PO DAILY PRN triamterene 37.5 mg-hydrochlorothiazide 25 mg capsule 1 cap PO QAM Take morning of surgery OTHERWISE NOTHING TO EAT OR DRINK AFTER MIDNIGHT: mometasone 50 mcg/actuation nasal spray 2 sprays INTNAS UD PRN (if needed) Take evening before surgery cetirizine 10 mg capsule 10 mg PO DAILY PRN (if needed) simvastatin 40 mg tablet 40 mg PO QPM Other Notes If you have any questions please call us at [phone] or [phone] or [phone] or [phone]
--- NOTE | 2020-12-30 09:44 | Anesthesiology Consultation ---
Date of Service December 30, 2020 Assessment & Plan (1) Encounter for pre-operative examination: COVID Status: As of 12/30 assessment, patient denies travel to endemic area, known exposure/sick contacts, or symptoms of COVID19. Patient instructed that they and their household members must follow strict social distancing guidelines, wear a mask in public and avoid travel/events/gatherings prior to surgery. Patient will be traveling to [place] with her to a remote area ("there are more moose than people") to go snowmobiling. She is unsure of her exact travel dates at this time, but was made aware of policy regarding timing of travel and COVID testing. She assures me she will return at least 5 days before getting her COVID test. Preoperative COVID19 testing to be completed prior to surgery per surgeon's arrangements. Patient made aware to self-isolate as much as possible between COVID testing and surgery. PCP Clearance 12/26/20 = "Pending normal preoperative testing*, She is at low risk for cardiac complications with upcoming knee replacement surgery. Preoperative testing is scheduled for next week. She did speak with dermatology about her Cosentyx dose, and will take it as usual, which will be about 2 weeks prior to her surgery." *preoperative testing was unremarkable. Chart Review Chart Review: Acceptable Risk for Surgery and Patient seen in Pre Admission Testing Teaching & Discussion Instructed NPO after midnight before surgery, except medications with 15 cc of water. Medication instructions provided according to the PAT guidelines. History Surgery Operation Date: 01/22/21 07:00 Proposed Procedures p Left Total Knee Arthroplasty - Dani Linton MD Height/Weight Height: 5 ft 2 in Weight: 88.9 kg Allergies Allergy/AdvReac Type Severity Reaction Status Date / Time isosorbide [From Imdur] Allergy Mild Unknown Verified 12/26/20 08:37 meloxicam Allergy Mild Psoriasis Verified 12/26/20 08:37 celecoxib [From Celebrex] Allergy Unknown Psoriasis Verified 12/26/20 08:37 Medications Home Medications Medication Instructions Recorded Confirmed Last Taken calcipotriene 0.005 % topical cream 1 appln TOP BID PRN 05/31/19 12/26/20 Unknown clobetasol 0.05 % topical cream 1 appln TOP UD PRN 05/31/19 12/26/20 Unknown multivitamin 1 cap PO DAILY 05/31/19 12/26/20 01/16/20 08:00 secukinumab 150 mg/mL subcutaneous 150 mg SQ MONTHLY ml 05/31/19 12/26/20 12/15/19 syringe mometasone 50 mcg/actuation nasal 2 sprays INTNAS UD PRN #17 gm 12/25/19 12/26/20 01/16/20 21:00 spray cholecalciferol (vitamin D3) 25 1,000 units PO DAILY 01/19/20 12/26/20 Unknown mcg (1,000 unit) capsule lisinopril 10 mg tablet 10 mg PO QAM #90 tab 07/02/20 12/26/20 Unknown cetirizine 10 mg capsule 10 mg PO DAILY PRN 08/15/20 12/26/20 Unknown simvastatin 40 mg tablet 40 mg PO QPM #90 tab 09/23/20 12/26/20 Unknown triamterene 37.5 1 cap PO QAM #90 cap 09/23/20 12/26/20 Unknown mg-hydrochlorothiazide 25 mg capsule Past Medical History Medical History Allergic rhinitis Goiter diffuse, nontoxic Hyperlipidemia Hypertension Impaired fasting glucose hgba1c 6.4% (03/2019) Osteoarthritis Osteopenia of multiple sites Psoriasis Follows with rheumatology Thyroid nodule under observation by PCP - stable x years Exercise / Class Metabolic Activity II 4-5 Yardwork/Stairs/Walk up hill Past Family History Family History Mother Pulmonary embolism History of hip surgery Hypertension Hyperlipidemia Father Pneumothorax Hypertension Hyperlipidemia Grandmother Breast cancer Past Surgical History Surgical History Family history of reaction to anesthesia Sister- PONV History of colonoscopy History of gynecologic surgery Multiple (for endometriosis) History of hemangioma Excisions x3 (ear) History of left knee surgery History of left oophorectomy History of repair of left rotator cuff History of right knee joint replacement Right TKA: 01/17/20: SAB x1 attempt at L4 + PNB at [facility] Past Anesthesia History No Hx of Anesthesia Complications and No Family Hx of Anesthesia Complications History of PONV No Hx of PONV and No Hx of Motion Sickness Social History Smoking Status: Never smoker Do You Dip or Chew Tobacco: No Hx Alcohol Use: No Hx Substance Use: No substance use type: does not use Review of Systems Pt denies any recent chest pain, shortness of breath, palpitations, cough, fever, URI, or uncontrolled acid reflux. Physical Exam Vital Signs BP: 137/85 P: 98bpm SPO2: 95% RA T: 97.9 F R: 16 ENMT Mouth: no dental restorations, no chipped teeth and no loose teeth Thyromental Distance: > or= 3.5 Finger Breadths Mallampati Class: I Neck neck extension not limited Respiratory normal respiratory effort, lungs clear to auscultation Cardiovascular Rate/Rhythm: regular rhythm and + tachycardic Heart Sounds: no murmur Vessels: no carotid bruit Extremities: no edema Testing Laboratory Results 12/30/20 10:07 12/30/20 10:07 PT 9.8 Seconds (9.0-12.0) 12/30/20 10:07 INR 1.0 (0.9-1.1) 12/30/20 10:07 APTT 22.5 Seconds (21.0-31.0) 12/30/20 10:07 Hemoglobin A1c 6.3 % (4.5-5.6) H 12/30/20 10:07 Urine Color Yellow 12/30/20 Unknown Urine Appearance Clear (Clear) 12/30/20 Unknown Urine pH 8.5 (4.5-7.5) H 12/30/20 Unknown Ur Specific [place] 1.011 (1.000-1.030) 12/30/20 Unknown Urine Protein Negative (Negative) 12/30/20 Unknown Urine Glucose (UA) Negative (Negative) 12/30/20 Unknown Urine Ketones Negative (Negative) 12/30/20 Unknown Urine Nitrite Negative (Negative) 12/30/20 Unknown Ur Leukocyte Esterase Negative (Negative) 12/30/20 Unknown Blood Type A Positive 12/30/20 10:07 Antibody Screen NEGATIVE 12/30/20 10:07 Electrocardiogram Date: 12/30/20 Findings: + NSR @ (91bpm) Chest X-Ray Date: 12/30/20 Findings: + NAD
[2020-12-30 10:33] LABS: Basophils # (auto) 0.04 K/uL (0-0.2); Basophils % (auto) 0.5 %; Eosinophils # (auto) 0.15 K/uL (0-0.5); Eosinophils % (auto) 1.8 %; Hematocrit (blood only) 46.2 % (37-47); Immature Granulocytes # (auto) 0.01 K/uL (0.00-0.02); Immature Granulocytes % (auto) 0.1 %; Lymphocytes # (auto) 1.51 K/uL (1.2-3.4); Lymphocytes % (auto) 17.7 %; Mean Corpuscular Hemoglobin 30.1 pg (25-34); Mean Corpuscular Hgb Conc 32.5 g/dL (32-36); Mean Corpuscular Volume 92.8 fL (80-100); Mean Platelet Volume 10.9 fL (7.4-10.4); Monocytes # (auto) 0.74 K/uL (0.11-0.59); Monocytes % (auto) 8.7 %; Neutrophils % (auto) 71.2 %; Platelet Count 337 K/uL (130-400); RDW Coefficient of Variation 13.6 % (11.5-14.5); RDW Standard Deviation 46.5 fL (36.4-46.3); Red Blood Count 4.98 M/uL (4.2-5.4); White Blood Count 8.55 K/uL (4.8-10.8)
[2020-12-30 10:36] LABS: Appearance Urine Clear (Clear); Bilirubin Urine Negative (Negative); Blood Urine Negative (Negative); Color Urine Yellow; Glucose Urine UA Negative (Negative); Ketones Urine Negative (Negative); Leukocyte Esterase Urine Negative (Negative); Nitrite Urine Negative (Negative); Protein Urine Negative (Negative); Specific Gravity Urine 1.011 (1.000-1.030); Urobilinogen Urine Negative (Negative); pH Urine 8.5 (4.5-7.5)
--- NOTE | 2020-12-30 10:38 | XRay Report ---
XR chest Pre-admission PA/Lat CLINICAL HISTORY: Preoperative chest COMPARISON STUDY: December 25, 2019 FINDINGS: The cardiac and mediastinal contours remain stable. There are bilateral subsegmental atelec tatic changes present. There is minimal elevation/eventration right hemidiaphragm.[ IMPRESSION: No active disease in the chest. ACT 112: Negative or not required by law. Electronically signed by: Jose Guardado M.D. 12/30/2020 10:37 AM
[2020-12-30 10:53] LABS: Partial Thromboplastin Ratio 0.9; Partial Thromboplastin Time 22.5 Seconds (21.0-31.0); Prothrombin Time 9.8 Seconds (9.0-12.0)
[2020-12-30 11:09] LABS: BUN Creatinine Ratio 25.2 (10-20); Calcium 10.3 mg/dl (8.5-10.1); Creatinine Clr Calc Pharmacy 73.1 ml/min; Est GFR (African American) 97.9; Est GFR (Non-African American) 84.5; Potassium 4.7 mmol/L (3.5-5.1)
[2020-12-30 11:35] LABS: Estimated Average Glucose 134 mg/dl; Hemoglobin A1C 6.3 % (4.5-5.6)
--- NOTE | 2020-12-30 16:30 | Electrocardiogram Report ---
Test Reason : Blood Pressure : / mmHG Vent. Rate : 091 BPM Atrial Rate : 091 BPM P-R Int : 164 ms QRS Dur : 090 ms QT Int : 354 ms P-R-T Axes : 070 -27 019 degrees QTc Int : 435 ms Normal sinus rhythm Normal ECG When compared with ECG of 28-DEC-2019 14:18, No significant change was found Confirmed by Alexandru Mai ([id number]) on 12/30/2020 4:30:27 PM Referred By: Dani Linton Confirmed By:Brock Mai
--- NOTE | 2020-12-30 18:43 | History & Physical Report ---
Date of Service December 30, 2020 Assessment & Plan (1) Left knee DJD: Postoperative prescriptions for Percocet and Coumadin will be provided at discharge from the hospital. Anticipate discharge to home with home health services. Preoperative lab work, EKG, and chest x-ray have been ordered. Medical clearance has been requested from her PCP, Johanna Lynn PA-C. The patient is aware of the COVID-19 risks associated with surgery. She is currently asymptomatic of any COVID-19 symptoms. The patient states she did return recently from [place], but was participating in all of the recommended personal protection precautions. She will obtain COVID-19 nasal swab testing 1 week prior to surgery. PDMP was checked and there are no concerning findings. She still has her walker from the previous surgery and will bring it the day of surgery. History of Present Illness Chief Complaint: Left knee pain Primary Care Provider: Durga Ag MD This 75-year-old female presents today for left knee pain for over 3 years. She is scheduled to undergo a left knee total knee arthroplasty on 01/22/2021. Symptoms have become worse with time. She previously had a right knee total knee arthroplasty in 01/2020. She has done well with that. She would like to proceed with the same on the left. Knee pain is worse with weightbearing. It is affecting her ADLs. She notes occasional night pain. No catching or locking. No buckling. No numbness or tingling. She denies any current effusion. She has tried activity modification as well as oral anti- inflammatories and oral pain medication without improvement. Preoperative imaging has been obtained. Allergies Allergy/AdvReac Type Severity Reaction Status Date / Time isosorbide [From Imdur] Allergy Mild Unknown Verified 12/26/20 08:37 meloxicam Allergy Mild Psoriasis Verified 12/26/20 08:37 celecoxib [From Celebrex] Allergy Unknown Psoriasis Verified 12/26/20 08:37 Home Medications Medication Instructions Recorded Confirmed Type calcipotriene 0.005 % topical cream 1 appln TOP BID PRN 05/31/19 12/26/20 History clobetasol 0.05 % topical cream 1 appln TOP UD PRN 05/31/19 12/26/20 History multivitamin 1 cap PO DAILY 05/31/19 12/26/20 History secukinumab 150 mg/mL subcutaneous 150 mg SQ MONTHLY ml 05/31/19 12/26/20 History syringe mometasone 50 mcg/actuation nasal 2 sprays INTNAS UD PRN #17 gm 12/25/19 12/26/20 Rx spray cholecalciferol (vitamin D3) 25 1,000 units PO DAILY 01/19/20 12/26/20 History mcg (1,000 unit) capsule lisinopril 10 mg tablet 10 mg PO QAM #90 tab 07/02/20 12/26/20 Rx cetirizine 10 mg capsule 10 mg PO DAILY PRN 08/15/20 12/26/20 History simvastatin 40 mg tablet 40 mg PO QPM #90 tab 09/23/20 12/26/20 Rx triamterene 37.5 1 cap PO QAM #90 cap 09/23/20 12/26/20 Rx mg-hydrochlorothiazide 25 mg capsule Past Med/Surg History Medical History Allergic rhinitis Goiter diffuse, nontoxic Hyperlipidemia Hypertension Impaired fasting glucose hgba1c 6.4% (03/2019) Osteoarthritis Osteopenia of multiple sites Psoriasis Follows with rheumatology Thyroid nodule under observation by PCP - stable x years Surgical History Family history of reaction to anesthesia Sister- PONV History of colonoscopy History of gynecologic surgery Multiple (for endometriosis) History of hemangioma Excisions x3 (ear) History of left knee surgery History of left oophorectomy History of repair of left rotator cuff History of right knee joint replacement Right TKA: 01/17/20: SAB x1 attempt at L4 + PNB at [facility] Family History Mother Pulmonary embolism History of hip surgery Hypertension Hyperlipidemia Father Pneumothorax Hypertension Hyperlipidemia Grandmother Breast cancer Social History Smoking Status: Never smoker Second Hand Exposure: No; Hx Alcohol Use: No Hx Substance Use: No Preferred Language: Czech Communication Ability: Effective Visual Impairment: Diminished Hearing Ability: Normal 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 Physical Exam Physical Exam: Vitals: Temperature 36.6, BP 138/84, pulse 112, O2 sat 96% on room air, height 152 cm, weight 89.4 kilograms, BMI 38.7. General: Well-developed, well-nourished, elderly white female in no acute distress. Sitting in a chair. Alert and oriented. Skin: Warm and dry with good turgor. No rashes or lesions. No ecchymosis or erythema. No intraarticular effusion. HEENT: Normocephalic, atraumatic. Eyes: PERRLA, EOMI. Nares and oropharynx exams deferred due to COVID precautions. Heart: Mildly tachycardic. RRR. No MGR. Lungs: Clear to auscultation bilaterally, no crackles, rhonchi or wheezing, good air movement. Abdomen: Moderately obese, bowel sounds present x4, soft, nontender. No organomegaly. No masses. Musculoskeletal: Left knee evaluation reveals no intraarticular effusion. No redness or warmth. Full terminal extension. Flexion to greater than 100 degrees. Strength is 5/5 with fairly good quad tone. She has focal discomfort with palpation over the medial joint line. No lateral joint line discomfort today. Mild peripatellar crepitus is noted with motion. Stable collateral ligaments. No defect in the patellar tendon or quadriceps tendon. Ambulates with a slightly antalgic gait. Neurologic: Gross sensation is intact across left leg by soft touch. Peripheral pulses are 2+. Results & Data Results & Data ([facility]) Diagnostic Findings Radiographic imaging obtained earlier today shows advanced DJD of the medial compartmentof the left knee. Periarticular osteophytes and joint space narrowing are present.
[~2021-01-22 06:29] MED LIST changes: +BUPIVACAINE 0.25% 30 ML VIAL ONE; +BUPIVACAINE 0.5 % 5 MG/1 ML PF 10ML VIAL ONE; -CEFAZOLIN 2000MG 2,000 MG/15 ML SYR IV SCH; -ROPIVACAINE 0.5% HCL/PF 150 MG, BUPIVACAINE 0.5% MPF 30 ML, EPINEPHrine 0.15 MG, Ketoro... INFIL SCH; +ROPIVACAINE 0.5% HCL/PF 150 MG, BUPIVACAINE 0.75% MPF 20 ML, EPINEPHrine 0.15 MG, Ketor... INFIL SCH; +ceFAZolin 2000MG 2,000 MG/15 ML SYR IV SCH
--- NOTE | 2021-01-22 06:57 | History & Physical Bridge Note ---
Date of Service January 22, 2021 History & Physical Bridge Note I have examined the patient, reviewed the History & Physical and in the interval since the performance of the History & Physical I have noted the following changes of clinical significance: consent and site verified/covid screen negative.no changes noted
[2021-01-22] MEDS ORDERED: fentaNYL citrate 100 MCG/2 ML VIAL IV PRN (07:28)
[2021-01-22] MEDS ORDERED: ePHEDrine sulfate 50 MG/ML AMP IV PRN (07:28)
[2021-01-22] MEDS ORDERED: ONDANSETRON INJ 2 MG/ML 2 ML VIAL IV PRN ×2 (07:28→12:20)
[2021-01-22] MEDS ORDERED: ATROPINE SULFATE 0.1 MG/ML 10ML SYR IV PRN (07:28)
[2021-01-22] MEDS ORDERED: LIDOCAINE HCL 2% 2 ML VIAL/AMP(20MG/ML) INFIL ONE (08:00)
[2021-01-22] MEDS ORDERED: fentaNYL citrate 100 MCG/2 ML VIAL ONE (08:00)
[2021-01-22] MEDS ORDERED: PROPOFOL IV EMULSION 10 MG/ML 20 ML VIAL IV ONE (08:00)
[2021-01-22] MEDS ORDERED: MIDAZOLAM HCL 1 MG/ML 2ML VIAL ONE ×2 (08:00→09:54)
[2021-01-22] MEDS ORDERED: ORTHO JOINT ANESTHETIC ONE (09:22)
[2021-01-22] MEDS ORDERED: KETAMINE 50 MG/5 ML SYRINGE ONE (10:10)
--- NOTE | 2021-01-22 11:08 | Post Operative Brief Note ---
Immediate Post Op Note v1 Date of Surgery January 22, 2021 Pre & Post Diagnosis Operation Date: 01/22/21 09:00 Pre-Op Diagnosis: Left Knee Osteoarthritis Post-Op Diagnosis: Left Knee Osteoarthritis I identified the patient and participated in the time-out.: Yes Procedure Operation Date: 01/22/21 09:00 Actual Procedures p Left Total Knee Arthroplasty, Cemented(Left) - Dani Linton MD Surgeon Dani Linton MD Baffle Mounter Darlene/Tahmina Estimated Blood Loss 25 Findings Consistent with Post-Op Diagnosis
--- NOTE | 2021-01-22 11:19 | Operative Report ---
Post Operative Report Pre & Post Diagnosis Operation Date: 01/22/21 09:00 Pre-Op Diagnosis: Left Knee Osteoarthritis Post-Op Diagnosis: Left Knee Osteoarthritis I identified the patient and participated in the time-out.: Yes Procedure Operation Date: 01/22/21 09:00 Actual Procedures p Left Total Knee Arthroplasty, Cemented(Left) - Dani Linton MD Surgeon TERI Linton MD Voice Systems Engineer Darlene/Tahmina MACIEL Estimated Blood Loss 25 Findings Consistent with Post-Op Diagnosis Specimens see operative report Drains none Complications none Disposition Accompanied Patient To Recovery: Yes Disposition: Recovery Room Indications This 75-year-old female presented to the office with complaints of persisting left knee pain. She had tried conservative care measures without improvement. Patient elected to proceed with surgical intervention after being educated about potential risks and outcomes. Preoperative imaging was obtained. Description of Procedure Patient was administered a spinal anesthetic and then taken to the operating room where she was given sedation. She was prepped and draped in the usual sterile fashion. Please see Dr. Linton's operative report for specifics of the procedure. I was present for the entire case from initial patient positioning through final wound closure. Assistance was provided in tissue retraction, hemostasis, trial implant placement, final implant placement, and final wound closure. Patient was taken to the recovery room in satisfactory condition. I attest to the content of the Intraoperative Record and any orders documented therein. Any exceptions are noted below.
--- NOTE | 2021-01-22 11:24 | Operative Report (OR) ---
DATE OF OPERATION: 01/22/2021 SURGEON: Dani Linton MD. FIELD TECHNICIAN: Dr. Colon. SECOND FIELD TECHNICIAN: Jalen Martel PA-C. PREOPERATIVE DIAGNOSIS: Osteoarthritis with varus deformity, left knee. POSTOPERATIVE DIAGNOSIS: Osteoarthritis with varus deformity, left knee. OPERATION PERFORMED: Left cemented total knee replacement. SUMMARY OF IMPLANTS: Size 2.5 left posterior cruciate substituting femur, size 2.5 mobile bearing tray, size 35 patella, 2.5 x 10 mm insert posterior cruciate substituting, 2 bags of Palacos G cement. ESTIMATED BLOOD LOSS: 25 mL PATHOLOGY: Pending on bone. CRYSTALLOID: Per anesthesia. DVT prophylaxis per protocol. PERIOPERATIVE SITUATION: Medically cleared female with intractable knee pain. Has knee replacement done on the other side is doing well and wants to have this one done. She understands the risks and consequences. Please see consent. DESCRIPTION OF PROCEDURE: The patient was appropriately identified, site verified, consent verified. Antibiotics confirmed as being given. The left lower extremity was prepped and draped in usual routine fashion. Tourniquet inflated to 275 mmHg after exsanguination of limb with a rubber Esmarch bandage for a total of 49 minutes. Midline exposure utilized. Parapatellar arthrotomy performed. Synovectomy completed. Distal femur entered. Cruciates resected. Distal femur resected 12 mm, proximal tibia resected 4 mm, the extension gap was excellent. Tibia sized to 2.5 femur, 2.5 appropriate cutting block applied to the femur and the anterior, posterior condylar and chamfer cuts made. The flexion gap was excellent. The box cut was then made and a 2.5 fit well. The tibia was then subluxated and the tibial baseplate 2.5 size was placed in appropriate position and appropriate broaching and reaming carried out. The trial reduction was excellent. The patella tracked well. The patella was everted resecting about 4-5 mm, leaving 14-15 mm. The 35 button was then seated and tracked well. The Orthomix was then injected all about the knee including posteriorly. All trial implants were removed. The wound irrigated with Betadine and Pulsavac and the permanent cemented in position, tibia, femur, patella in that order After 12 minutes, the tourniquet was deflated; after 14 minutes, the knee was flexed. The tibia subluxated, the trial spacer removed. The wound irrigated. There was no cement removal required. Permanent liner was seated. The knee reduced and closed at 40 degrees of flexion with #2 Vicryl, 2-0 Vicryl and stainless steel clips. Appropriate dressing applied and the patient transferred to recovery room in satisfactory condition having tolerated the procedure well. ESTIMATED BLOOD LOSS: 25 mL. Crystalloid per anesthesia. I attest to the content of the Intraoperative Record and any orders documented therein. Any exception s are noted below.
--- NOTE | 2021-01-22 11:35 | XRay Report ---
XR knee LT 1 or 2V routine CLINICAL HISTORY: Osteoarthritis status post surgery COMPARISON: 12/30/2020 DISCUSSION: There are postsurgical changes of a total left knee arthroplasty and patellar resurfacing . The femoral and tibial components appear well seated. There are overlying skin josee. There is ga s within soft tissues consistent with recent surgery IMPRESSION: Postsurgical changes of a total left knee arthroplasty. ACT 112: Negative or not required by law. Electronically signed by: Jose Guardado M.D. 01/22/2021 11:34 AM
--- NOTE | 2021-01-22 11:52 | Progress Notes ---
DATE: 01/22/2021 SUBJECTIVE: Postop check status post left total knee replacement. The patient is doing well. OBJECTIVE: Vital signs stable, afebrile. Denies chest pain, shortness of breath, fever, chills, nausea, vomiting or headache. Wound dressing clean, dry and intact. Neurovascular exam limited by spinal. Postop x-rays look excellent. ASSESSMENT: Doing well. Continue postoperative care pathway. Discharge tomorrow.
--- NOTE | 2021-01-22 11:54 | Discharge Summary (DS) ---
Date of discharge 01/23/2021 anticipated. CHIEF COMPLAINT: Left knee pain. HISTORY OF PRESENT ILLNESS: Underwent elective left total knee replacement. Hospital course has been uneventful to date. PAST MEDICAL HISTORY: Remarkable for goiter, hyperlipidemia, hypertension, allergic rhinitis, multiple osteoarthritis sites, psoriatic skin changes, thyroid nodule. PAST SURGICAL HISTORY: Remarkable for meningioma, knee surgeries, oophorectomy, rotator cuff repair, right knee replacement. FAMILY HISTORY: Remarkable for pulmonary embolism, history of hip surgery, hypertension, hyperlipidemia, pneumothorax, breast cancer. SOCIAL HISTORY: Reveals she lives at home, is and has no issues. Does not smoke or drink. REVIEW OF SYSTEMS: Reveals no chest pain, shortness of breath, fever, chills, nausea, vomiting or headache. Postop x-rays look excellent. ASSESSMENT AND PLAN: Doing well status post left total knee replacement. Continue postoperative care pathway. Discharge tomorrow.
[2021-01-22] MEDS ORDERED: VANCOMYCIN HCL 1,250 MG in SODIUM CHLORIDE 0.9% 250 ML IV SCH (12:00)
[2021-01-22] MEDS ORDERED: bisacodyL 10 MG SUPP PR PRN (12:20)
[2021-01-22] MEDS ORDERED: diphenhydrAMINE 50 MG/ML VIAL IV PRN (12:20)
[2021-01-22] MEDS ORDERED: ALUMINUM/MAGNESIUM SUSP 30 ML UDC PO PRN (12:20)
[2021-01-22] MEDS ORDERED: MAGNESIUM HYDROXIDE SUSP 30 ML UDC PO PRN (12:20)
[2021-01-22] MEDS ORDERED: METOCLOPRAMIDE HCL INJ 5 MG/ML 2 ML VIAL IV PRN (12:20)
[2021-01-22] MEDS ORDERED: SODIUM CHLORIDE 0.9% 1000ML 1,000 ML IV SCH (12:20)
[2021-01-22] MEDS ORDERED: HYDROmorphone INJ 0.5 MG/0.5 ML SYR IV PRN (12:20)
[2021-01-22] MEDS ORDERED: NALOXONE HCL 0.4 MG/1 ML VIAL/CARP IV PRN (12:20)
[2021-01-22] MEDS ORDERED: CETIRIZINE HCL 10 MG TABLET PO PRN (12:23)
[2021-01-22] MEDS ORDERED: FLUTICASONE PROPIONATE NA SPR 16 GM BTL PRN (12:25)
[2021-01-22] MEDS ORDERED: WARFARIN SOD 5 MG TAB PO ONE (14:15)
[2021-01-22] MEDS: ORTHO WARFARIN NOMOGRAM SCH (14:16)
[2021-01-22] MEDS: KETOROLAC TROMETHAMINE 15 MG/ML VIAL IV SCH ×2 (14:16→20:57)
[2021-01-22] MEDS: ACETAMINOPHEN 500 MG TAB PO SCH ×2 (14:17→20:59)
--- NOTE | 2021-01-22 14:51 | Anesthesiology Progress Note ---
Date of Service January 22, 2021 Anesthesia Post Procedure Vital Signs Vital Signs: Temp Pulse Pulse Resp BP BP Pulse Ox 01/22/21 14:15 36.3 C L 89 20 114/74 95 01/22/21 13:12 36.4 C L 89 16 124/80 96 01/22/21 12:21 36.4 C L 81 16 124/79 97 01/22/21 11:55 36.3 C L 91 H 16 113/70 94 01/22/21 11:45 87 17 111/66 96 01/22/21 11:35 88 20 104/65 94 01/22/21 11:25 86 17 104/61 97 01/22/21 11:18 36.1 C L 88 16 90/57 L 98 01/22/21 06:45 36.7 C 102 H 94 H 148/87 H 96 Transfer of Care Handoff Completed per policy Notes Mental Status: alert / awake / arousable and participated in evaluation Patient Amnestic to Procedure: Yes Nausea / Vomiting: adequately controlled Pain: adequately controlled Airway Patency, RR, SpO2: stable & adequate BP & HR: stable & adequate Hydration State: stable & adequate Neuraxial Anesthesia: was administered and sensory block is resolving Anesthetic Complications: no major complications apparent and Pt Satisfied with anesthetic care
[2021-01-22] MEDS: ASCORBIC ACID 500 MG TAB PO SCH (16:57)
[2021-01-22] MEDS: FERROUS GLUCONATE 324 MG TAB PO SCH (16:57)
[2021-01-22] MEDS: oxyCODONE HCL IR 5 MG TAB (IMMEDIATE RELEASE) PO PRN ×2 (17:00→22:40)
[2021-01-22] MEDS: ceFAZolin 2000MG 2,000 MG/15 ML SYR IV SCH (17:26)
[2021-01-22] MEDS ORDERED: TRANEXAMIC ACID / 0.7% NACL 1,000 MG/100 ML BAG IV SCH (17:30)
[2021-01-22] MEDS: DOCUSATE SODIUM 100 MG CAP PO SCH (20:58)
[2021-01-22] MEDS ORDERED: SIMVASTATIN 40 MG TAB PO SCH (21:00)
[2021-01-22] MEDS ORDERED: SENNA 8.6 MG TAB PO SCH (21:00)
[2021-01-23] MEDS: KETOROLAC TROMETHAMINE 15 MG/ML VIAL IV SCH ×2 (01:02→07:47)
[2021-01-23] MEDS: ceFAZolin 2000MG 2,000 MG/15 ML SYR IV SCH (01:02)
[2021-01-23] MEDS: ACETAMINOPHEN 500 MG TAB PO SCH (05:09)
[2021-01-23 07:26] LABS: Hematocrit (blood only) 38.9 % (37-47); Hemoglobin 12.7 g/dL (12.0-16.0); Mean Corpuscular Hemoglobin 29.7 pg (25-34); Mean Corpuscular Hgb Conc 32.6 g/dL (32-36); Mean Corpuscular Volume 90.9 fL (80-100); Mean Platelet Volume 10.2 fL (7.4-10.4); Platelet Count 280 K/uL (130-400); RDW Coefficient of Variation 13.4 % (11.5-14.5); RDW Standard Deviation 44.8 fL (36.4-46.3); Red Blood Count 4.28 M/uL (4.2-5.4); White Blood Count 12.13 K/uL (4.8-10.8)
--- NOTE | 2021-01-23 07:35 | Progress Notes ---
DATE: 01/23/2021 SUBJECTIVE: Postop day #1 status post left total knee replacement. The patient is doing well. She is in the bathroom, conversant. She is ambulatory in the room. She denies chest pain, shortness of breath, fever, chills, nausea, vomiting or headache. OBJECTIVE: Vital signs are stable. She is afebrile. A.m. labs are pending. Wound dressing clean, dry and intact. Neurovascular check, femoral sciatic nerve is normal. ASSESSMENT AND PLAN: Doing well. Discharge to home today after PT, OT. Coumadin dose per nomogram.
[2021-01-23 07:39] LABS: Prothrombin Time 10.6 Seconds (9.0-12.0)
[2021-01-23 07:58] LABS: BUN Creatinine Ratio 25.5 (10-20); Calcium 9.7 mg/dl (8.5-10.1); Est GFR (African American) 100.6; Est GFR (Non-African American) 86.8; Potassium 3.9 mmol/L (3.5-5.1)
[2021-01-23] MEDS ORDERED: dexAMETHasone 10 MG in SYRINGE 0 ML IV SCH (08:00)
[2021-01-23] MEDS ORDERED: TRIAMTERENE/HCTZ 37.5/25MG CAP PO SCH (09:00)
[2021-01-23] MEDS ORDERED: lisinopril 10 MG TAB PO SCH (09:00)
[2021-01-23] MEDS ORDERED: MULTIVITAMIN TAB PO SCH (09:00)
--- NOTE | 2021-01-23 09:14 | Orthopedic Progress Note ---
Date of Service January 23, 2021 Assessment & Plan Admission and Anticipated Discharge Date Admission Date: January 22, 2021 Results & Data ([facility]) Vital Signs (Past 12 Hours) Vital Signs Temp Pulse Pulse Resp BP Pulse Ox 01/23/21 07:32 36.6 C 88 18 143/85 H 95 01/23/21 03:00 36.5 C 88 18 130/85 96 01/22/21 23:00 36.8 C 84 18 145/78 H 96
[2021-01-23] MEDS: FERROUS GLUCONATE 324 MG TAB PO SCH (09:17)
[2021-01-23] MEDS: ASCORBIC ACID 500 MG TAB PO SCH (09:18)
[2021-01-23] MEDS: DOCUSATE SODIUM 100 MG CAP PO SCH (09:19)
[2021-01-23] MEDS: ORTHO WARFARIN NOMOGRAM SCH (10:52)
[2021-01-23] MEDS ORDERED: WARFARIN SOD 5 MG TAB PO ONE (11:30)
== END 2021-01-23 11:55 | disposition home health service (06) ==
LOC: 3E 06:29 → ASU 06:29